=== PATIENT | female | born 1935 | race Caucasian/White ===

== ENCOUNTER 2016-10-24 07:41 | Day surgery (SDC) | payer MEDICARE ==
--- NOTE | ~2016-10-24 | EGD ---
EGD REPORT [facility] [address] [place]. [address] NAME: JAHAIRA BELLA : [birth year] STATUS : REG [facility] [place] PAT#: [id number] AGE: 81 ADM/REG DATE : 10/24/16 MR#: [id number] REPORT SERV DATE: 10/24/16 DICTATED BY: SABRINA SAENZ. DATE: 10/24/16 REPORT STATUS : Draft TRANSCRIBED BY: [facility] DATE: 10/24/16 Endoscopy Center Patient Name: Jahaira Bella Date of : 1935 Attending MD: SABRINA SAENZ MD Procedure Date No Time: 10/24/2016 Procedure: Colonoscopy Indications: High risk colon CA surveillance: Personal history multiple (3 or more) adenomas; last exam 2011. Patient Profile: Informed consent was obtained from the patient by me prior to the procedure. Risks, benefits, and alternatives were discussed including the risk of bleeding, perforation, infection, reaction to medicine, missed lesion, and cardiopulmonary complications. Referring MD: DANNA PRADO Medicines: Monitored Anesthesia Care; pre-rx Robinul h/o transient bradycardia last exam. Complications: No immediate complications. Procedure: Pre-Anesthesia Assessment: - ASA Grade Assessment: II - A patient with mild systemic disease. After I obtained informed consent, the scope was passed under direct vision. Throughout the procedure, the patient's blood pressure, pulse, and oxygen saturations were monitored continuously. The PCF [id number] was introduced through the anus and advanced to the cecum, identified by appendiceal orifice and ileocecal valve. The colonoscope was slowly withdrawn with careful examination all mucosal surfaces including specific attention around flexures and tip deflection behind folds; retroflexion performed in rectum. The colonoscopy was performed without difficulty. The patient tolerated the procedure well. The quality of the bowel preparation was adequate. The appendiceal orifice and rectum were photographed. Findings: Six sessile polyps were found at the hepatic flexure. The polyps were 3 to 5 mm in size. These polyps were removed with a cold biopsy forceps. Resection and retrieval were complete. A sessile polyp was found in the transverse colon. The polyp was 5 mm in size. The polyp was removed with a cold biopsy forceps. Resection and retrieval were complete. A sessile polyp was found in the transverse colon. The polyp was 7 mm in size. The polyp was removed with a cold snare. Resection and retrieval EGD REPORT [address] [address] NAME: JAHAIRA BELLA : [birth year] STATUS : REG [facility] [place] PAT#: [id number] AGE: 81 ADM/REG DATE : 10/24/16 MR#: [id number] REPORT SERV DATE: 10/24/16 DICTATED BY: SABRINA SAENZ DATE: 10/24/16 REPORT STATUS : Draft TRANSCRIBED BY: [facility] DATE: 10/24/16 were complete. A patchy area of mildly erythematous and hfmengye-jxxxlwk-ashyoqopi mucosa was found in the sigmoid colon. Biopsies were taken with a cold forceps for histology. A flat polyp was found in the rectum. The polyp was 3 mm in size. The polyp was removed with a cold biopsy forceps. Resection and retrieval were complete. External internal hemorrhoids were found, and they were moderate. Impression: - Six 3 to 5 mm polyps at the hepatic flexure. Resected and retrieved. - One 5 mm polyp in the transverse colon. Resected and retrieved. - One 7 mm polyp in the transverse colon. Resected and retrieved. - Erythematous and ukhjlkhw-icinotb-dhltbopbh mucosa in the sigmoid colon. Biopsied. - One 3 mm polyp in the rectum. Resected and retrieved. - External internal hemorrhoids. Recommendation: - Patient has a contact number available for emergencies. The signs and symptoms of potential delayed complications were discussed with the patient. Return to normal activities tomorrow. Written discharge instructions were provided to the patient. - Regular diet. - Continue present medications. - Await pathology results. - Repeat colonoscopy is not recommended for surveillance due to age; patient agrees. Procedure Code(s): --- Professional --- 03476, Colonoscopy, flexible, proximal to splenic flexure; with removal of tumor(s), polyp(s), or other lesion(s) by snare technique 18288, 59, Colonoscopy, flexible, proximal to splenic flexure; with biopsy, single or multiple Diagnosis Code(s): --- Professional --- K62.1, Rectal polyp D12.3, Benign neoplasm of transverse colon K63.89, Other specified diseases of intestine K64.4, Residual hemorrhoidal skin tags K64.8, Other hemorrhoids Z86.010, Personal history of colonic polyps EGD REPORT [facility] [address] [address] NAME: JAHAIRA BELLA : [birth year] STATUS : REG [facility] [place] PAT#: [id number] AGE: 81 ADM/REG DATE : 10/24/16 MR#: [id number] REPORT SERV DATE: 10/24/16 DICTATED BY: SABRINA SAENZ. DATE: 10/24/16 REPORT STATUS : Draft TRANSCRIBED BY: [employer] DATE: 10/24/16 CPT copyright 2013 [employer]. All rights reserved. The codes documented in this report are preliminary and upon bridge rigger review may be revised to meet current compliance requirements. SABRINA SAENZ MD 10/24/2016 10:06 AM This report has been signed electronically. Number of Addenda: 0 Note Initiated On: 10/24/2016 9:39 AM Scope Withdrawal Time 0 hours 12 minutes 17 seconds [id number] [id number]
--- NOTE | ~2016-10-24 | EGD ---
EGD REPORT [facility] [address] [place]. [address] NAME: JAHAIRA BELLA : 33 [place]US : [place] [facility] [place] PAT#: [id number] AGE: 81 ADM/REG DATE : 10/24/16 MR#: [id number] REPORT SERV DATE: 10/24/16 DICTATED BY: SABRINA SAENZ DATE: 10/24/16 REPORT STATUS : Draft TRANSCRIBED BY: [facility] DATE: 10/24/16 Endoscopy Center Patient Name: Jahaira Bella Date of : 1935 Attending MD: SABRINA SAENZ MD Procedure Date No Time: 10/24/2016 Procedure: Upper GI endoscopy Indications: Follow-up of gastric nodules; Omeprazole 20mg daily. Patient Profile: Informed consent was obtained from the patient by me prior to the procedure. Risks, benefits, and alternatives were discussed including the risk of bleeding, perforation, infection, reaction to medicine, missed lesion, and cardiopulmonary complications. Referring MD: DANNA PRADO Medicines: Monitored Anesthesia Care Complications: No immediate complications. Procedure: Pre-Anesthesia Assessment: - ASA Grade Assessment: II - A patient with mild systemic disease. After obtaining informed consent, the endoscope was passed under direct vision. Throughout the procedure, the patient's blood pressure, pulse, and oxygen saturations were monitored continuously. The GIF [id number] was introduced through the mouth, and advanced to the second part of duodenum. The endoscope was withdrawn with careful examination all mucosal surfaces including retroflexion stomach. The upper GI endoscopy was accomplished without difficulty. The patient tolerated the procedure well. Findings: The first part of the duodenum and 2nd part of the duodenum were normal. Two 5 mm sessile polyps with were found in the second part of the duodenum at c-sweep. The polyps were removed with a cold biopsy forceps. Resection and retrieval were complete. A single small papule (nodule) with was found in the gastric body 7mm, similar to previous, normal overlying mucosa, firm. Biopsies were taken with a cold forceps for histology. A single small papule (nodule) with was found in the cardia 8mm, similar to previous, normal overlying mucosa. Biopsies were taken with a cold forceps for histology. Multiple 5 mm sessile polyps were found in the gastric body. Biopsies were taken with a cold forceps for histology. The cardia, gastric fundus and cardia (on retroflexion) were normal. The gastric antrum was normal. EGD REPORT [address] [address] NAME: JAHAIRA BELLA : [birth year] [place]US : [place] [facility] [place] PAT#: [id number] AGE: 81 ADM/REG DATE : 10/24/16 MR#: [id number] REPORT SERV DATE: 10/24/16 DICTATED BY: SABRINA SAENZ DATE: 10/24/16 REPORT STATUS : Draft TRANSCRIBED BY: [employer] DATE: 10/24/16 The examined esophagus was normal. A small hiatus hernia was present. The esophagus and gastroesophageal junction were examined with white light. There was no visual evidence of Burnette's esophagus. Impression: - Normal first part of the duodenum and 2nd part of the duodenum. - Two duodenal polyps. Resected and retrieved. - A single small papule (nodule) with was found in the stomach. Biopsied. - A single small papule (nodule) with was found in the stomach. Biopsied. - Multiple gastric polyps. Biopsied. - Normal cardia and gastric fundus. - Normal antrum. - Normal esophagus. - Hiatus hernia. - There is no endoscopic evidence of Burnette's esophagus. Recommendation: - Patient has a contact number available for emergencies. The signs and symptoms of potential delayed complications were discussed with the patient. Return to normal activities tomorrow. Written discharge instructions were provided to the patient. - Regular diet. - Continue present medications. - Await pathology results. - Taper Omeprazole to use as needed. Procedure Code(s): --- Professional --- 68580, Esophagogastroduodenoscopy, flexible, transoral; with biopsy, single or multiple Diagnosis Code(s): --- Professional --- K31.7, Polyp of stomach and duodenum K31.9, Disease of stomach and duodenum, unspecified K44.9, Diaphragmatic hernia without obstruction or gangrene CPT copyright 2013 [employer]. All rights reserved. The codes documented in this report are preliminary and upon outpatient coder review may be revised to meet current compliance requirements. SABRINA SAENZ MD EGD REPORT [facility] [address] [address] NAME: JAHAIRA BELLA : 33 STATUS : REG [facility]#: [id number] AGE: 81 ADM/REG DATE : 10/24/16 MR#: [id number] REPORT SERV DATE: 10/24/16 DICTATED BY: SABRINA SAENZ. DATE: 10/24/16 REPORT STATUS : Draft TRANSCRIBED BY: [employer] DATE: 10/24/16 10/24/2016 9:42 AM This report has been signed electronically. Number of Addenda: 0 Note Initiated On: 10/24/2016 9:17 AM Scope Withdrawal Time 0 hours 0 minutes 0 seconds [id number] [id number]
[~2016-10-24 07:41] MED LIST: ASAB PO; LIPITOR40 PO; LOP50 PO; MIRALAXPKT PO; NORV5 PO; PRILO PO; ZESTRIL20 MG PO
== END 2016-10-24 23:59 | disposition home or self-care (01) ==
LOC: DMU 07:41
PROVIDERS: Internal Medicine Gastroenterology
PROC: 0DBL8ZX Excision of Transverse Colon, Via Natural or Artificial Opening Endoscopic, Diagnostic (ICD-10-PCS; 2016-10-24)
PROC: 0DB98ZX Excision of Duodenum, Via Natural or Artificial Opening Endoscopic, Diagnostic (ICD-10-PCS; 2016-10-24)
PROC: 0DB68ZX Excision of Stomach, Via Natural or Artificial Opening Endoscopic, Diagnostic (ICD-10-PCS; 2016-10-24)
PROC: 0DBP8ZX Excision of Rectum, Via Natural or Artificial Opening Endoscopic, Diagnostic (ICD-10-PCS; 2016-10-24)
PROC: 0DBK8ZX Excision of Ascending Colon, Via Natural or Artificial Opening Endoscopic, Diagnostic (ICD-10-PCS; principal; 2016-10-24 09:30)
PROC: 0DBL8ZX Excision of Transverse Colon, Via Natural or Artificial Opening Endoscopic, Diagnostic (ICD-10-PCS; 2016-10-24 09:30)
PROC: 0DBN8ZX Excision of Sigmoid Colon, Via Natural or Artificial Opening Endoscopic, Diagnostic (ICD-10-PCS; 2016-10-24 09:30)
DX: Z12.11 Encounter for screening for malignant neoplasm of colon (principal); D12.3 Benign neoplasm of transverse colon; D13.2 Benign neoplasm of duodenum; K63.5 Polyp of colon; K31.7 Polyp of stomach and duodenum; I10 Essential (primary) hypertension; G47.33 Obstructive sleep apnea (adult) (pediatric); E78.00 Pure hypercholesterolemia, unspecified; K21.9 Gastro-esophageal reflux disease without esophagitis; E11.9 Type 2 diabetes mellitus without complications; Z88.0 Allergy status to penicillin; Z88.6 Allergy status to analgesic agent; Z87.891 Personal history of nicotine dependence; Z90.49 Acquired absence of other specified parts of digestive tract; Z98.41 Cataract extraction status, right eye; Z98.42 Cataract extraction status, left eye; Z98.890 Other specified postprocedural states
CPT/HCPCS: 82962; 88305